=== PATIENT | female | born 1985 | race Two or more races ===

== ENCOUNTER 2023-08-25 23:01 | Emergency (ER) | payer MEDICAID ==
[~2023-08-25] VITALS: Ht 165.1 cm; Wt 69.0 kg
[2023-08-25 23:07] VITALS: BP 114/67; PULSE 104; RESP 18; O2SAT 96
[2023-08-26 01:34] VITALS: TEMP 97.6
== END 2023-08-26 01:39 | disposition home or self-care (01) ==
LOC: ER 23:02
DX: J98.8 Other specified respiratory disorders (principal); Z20.822 Contact with and (suspected) exposure to COVID-19
CPT/HCPCS: 36415; 71046; 87502; 87503; 87811; 99284